=== PATIENT | female | born 1980 | race American Indian/Alaskan Native ===

== ENCOUNTER 2019-01-16 17:31 | Inpatient (IN) | payer OTHER ==
[2019-01-16] MEDS ORDERED: LACTATED RINGERS 1,000 ML ONE (18:38)
[2019-01-16 19:58] LABS: Bilirubin,Urine NEG (Negative); Blood,Urine NEG (Negative); Color,Urine Colorless (Yellow); Hyaline Casts,Urine 1 /LPF; Protein,Urine <15 mg/dL mg/dL (Negative); Urobilinogen,Urine < 2.0 mg/dL (<2.0)
[2019-01-16] MEDS ORDERED: LACTATED RINGERS 1,000 ML IV ONE (20:00)
[2019-01-16] MEDS ORDERED: VISTARIL PO ONE (20:45)
[2019-01-16] MEDS ORDERED: COLACE PO PRN (22:47)
[2019-01-16] MEDS ORDERED: ALUM-MAG HYDROX-SIMETH 200-200-20MG/5ML PO PRN (22:53)
[2019-01-16] MEDS ORDERED: TYLENOL PO STA (22:58)
[2019-01-16] MEDS ORDERED: BRETHINE SUB-Q ONE (22:59)
[2019-01-16] MEDS ORDERED: TYLENOL PO ONE (23:24)
--- NOTE | 2019-01-17 00:31 | History and Physical Report ---
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 denies: smoking, alcohol abuse, prescription drug abuse, IV drug use - Obstetrical History Expected Date of Delivery: 05/24/19 Actual Gestation: 21 Week(s) 6 Day(s) : 2 Para: 1 Hx # Term Pregnancies: 1 Number of Pregnancies: 0 Spontaneous Abortions: 0 Induced : 0 Number of Living Children: 1 Medications and Allergies Allergies Allergy/AdvReac Type Severity Reaction Status Date / Time No Known Allergies Allergy Unverified 01/16/19 19:25 Active Meds: Active Medications Al Hydrox/Mg Hydrox/Simethicone (Alum-Mag Hydrox-Simeth [id number]/5ml) 30 ml PO Q6H PRN PRN Reason: Indigestion Docusate Sodium (Colace) 100 mg PO Q12H PRN PRN Reason: Constipation Lactated Ringer's (Lactated Ringers) 1,000 mls @ 150 mls/hr IV DIRECT ROBERTO Multivitamins/Iron/Calcium ( Vitamin) 1 each PO QDAY ROBERTO Review of Systems All systems: negative (irregular contractions) Genitourinary: contractions (irregular) - Vital Signs Vital signs: Vital Signs Pulse BP 78 109/55 01/16/19 19:18 01/16/19 19:18 Temp Pulse Resp BP Pulse Ox 1830 F H 90 121/76 01/16/19 19:45 01/16/19 23:10 01/16/19 23:10 - Physical Exam Breasts: Positive: normal Cardiovascular: Regular rate, Normal S1, Normal S2 Lungs: Positive: Clear to auscultation Abdomen: Positive: normal appearance, soft, normal bowel sounds. Negative: distention, tenderness Vulva: both: normal Vagina: Positive: normal moisture. Negative: discharge Cervix: Negative: lesion, discharge Uterus: Positive: normal size, normal contour Anus/Rectum: Positive: normal perianal skin, heme negative. Negative: rectal mass, hemorrhoids Extremities: Positive: normal Deep Tendon Reflex Grade: Normal +2 - Obstetrical FHR: auscultation normal (via doppler) Results Result Diagrams: 01/17/19 21:01 Abnormal lab results 01/16/19 Range/Units 18:18 Ur Specific [place] 1.001 L (1.003-1.030) All other labs normal. Assessment and Plan 38 y.o. IUP 21w5d presents to triage with c/o contractions, pain 8/10. She reports that contractions began the night before, but she was able to sleep well through the night and when she awoke they were gone. She reports that throughout the day they "came and went" and she became concerned when they presented more painful. She admits to not drinking adequate amount of water throughout the day, and that she has been busy outside. She Denies any vaginal bleeding or LOF, +FM. Doppler heart tones appropriate for GA. SVE per transcriber- closed, thick. No vaginal bleeding noted. TOCO shows regular contractions per RN, palpating mild. After IV fluids, patient reports pain is 2/10, she "feels better". RN reports contractions on TOCO are now occasional/irritability, mild, but when she am bulated to bathroom and back to bed, patient reports more intense abdominal pain again. "8/10 like when I got here". Repeat SVE is 50/-3, RN notes brown discharge on exam glove. Consult with Dr. Delacruz to determine POC, patient offered vistaril and tylenol for comfort, continue IV fluids. Patient reports continued discomfort despite relief measures. Patient admitted for observation, continue IV fluids, may complete terb series. US for CL ordered. Patient states she receives regular care with Dr. Reggie Flores, hx of normal vaginal delivery at term, no hx labor or delivery, no complications with prior or current . States EDC was assigned by LMP, c/w US at 6 wks GA, request for records signed by patient and faxed.Will continue monitor.
[2019-01-17] MEDS: LACTATED RINGERS 1,000 ML IV SCH ×3 (00:46→09:26)
[2019-01-17] MEDS ORDERED: BRETHINE IVP ONE (00:59)
[2019-01-17] MEDS ORDERED: BRETHINE ONE (01:05)
--- NOTE | 2019-01-17 01:06 | Ultrasound Report ---
PROCEDURE: US OB LIMITED TECHNIQUE: Real-time limited sonographic examination was performed for evaluation of presentat ion, placenta, cervix for each fetus with image documentation (1 or more fetuses). HISTORY: labor COMPARISONS: None . FINDINGS: There is a single fetus in a vertex orientation. The placenta is along the posterior uterus. There is a normal amount of amniotic fluid present. The cervical length is 2.3 cm. heart rate 1 54 bpm. No further measurements are obtained on this study IMPRESSION: Single fetus in a vertex presentation. The cervical length is 2.3 cm. This document is electronically signed by Rayne Flores DO., January 17 2019 01:04:22 AM ET
--- NOTE | 2019-01-17 03:52 | Event Note ---
Date: 01/17/19 RN reports patient is resting in bed, feeling much better. Rates pain 2 with occasional contraction at this time. 2nd dose of terbutaline has been given. No activity on TOCO noted. Doppler FHTs appropriate. VSS. Will continue to monitor.
--- NOTE | 2019-01-17 09:15 | Progress Note ---
Assessment and Plan Patient was assessed this morning after reported being comfortable throughout the night. Patient reported feeling better, abdominal pain was occasional, minimal, mild. SVE no change from prior exam. No contractions or irritability noted on TOCO. Patient desired discharge and plans were made for patient to f/u tomorrow with assigned OB provider. Shortly after assessment when preparing to discharge patient, she called out with sudden, severe abdominal pain. Consult with Dr. Delacruz- order for US for abruption, labs ordered. NICU consulted to [facility] GA is less than age of viability. Will reassess plans with review of US and lab results. Subjective - Subjective Date of service: 01/17/19 Patient reports: movement normal, contractions (pt reports contractions have resumed, she reports strong abdominal pain), no loss of fluid, no vaginal b leeding Objective - Vital Signs Vital Signs: Vital Signs - 12hr 01/16/19 01/17/19 01/17/19 23:10 00:30 01:30 Temperature 98.2 F Pulse Rate 90 92 H 105 H Respiratory 18 20 Rate Blood Pressure 121/76 Blood Pressure 94/54 [Left] O2 Sat by Pulse 98 Oximetry 01/17/19 01/17/19 01/17/19 02:55 05:15 07:35 Temperature 98.8 F 98.0 F Pulse Rate 107 H 93 H Respiratory 18 18 Rate Blood Pressure Blood Pressure 90/54 102/59 [Left] O2 Sat by Pulse 98 100 Oximetry - Exam Breasts: normal Cardiovascular: Regular rate, Normal S1, Normal S2 Lungs: Clear to auscultation Abdomen: Present: normal appearance, soft, normal bowel sounds. Absent: distention, tenderness Vulva: both: normal Uterus: Present: normal (soft, nontender) FHR: auscultation normal (dopplers apropriate for GA) Uterine Contraction Monitor Mode: External Uterine Contraction Frequency (min): irritability Uterine Contraction Pattern: Irregular Uterine Contraction Intensity: Mild (by palpation) Extremities: normal Deep Tendon Reflex Grade: Normal +2 - Labs Labs: Abnormal Labs 01/16/19 18:18 Ur Specific [place] 1.001 L Laboratory Results - last 24 hr 01/16/19 18:18 Urine Color Colorless Urine Turbidity Clear Urine pH 7.0 Ur Specific [place] 1.001 L Urine Protein <15 mg/dl Urine Glucose (UA) Neg Urine Ketones Neg Urine Blood Neg Urine Nitrite Neg Urine Bilirubin Neg Urine Urobilinogen < 2.0 Ur Leukocyte Esterase Neg Urine WBC (Auto) 0.0 Urine RBC (Auto) 0.0 U Epithel Cells (Auto) < 1.0 Hyaline Casts 1
[2019-01-17] MEDS ORDERED: PITOCin/NS 20 UNIT/1000ML DRIP 20,000 MILLIUNITS/1,000 ML BAG IV ONE (09:18)
[2019-01-17 09:22] LABS: Basophils % (Auto) 0.2 % (0.0-1.8); Eosinophils % (Auto) 0.5 % (0.0-4.3); Hematocrit 32.5 % (30.3-42.9); Hemoglobin 10.5 gm/dl (10.1-14.3); Lymphocytes # (Auto) 0.7 K/mm3 (1.2-5.4); Lymphocytes % (Auto) 8.7 % (13.4-35.0); Mean Corpuscular HGB Conc 32 % (30-34); Mean Corpuscular Volume 80 fl (79-97); Monocytes # (Auto) 0.7 K/mm3 (0.0-0.8); Monocytes % (Auto) 8.7 % (0.0-7.3); Platelet Count 371 K/mm3 (140-440); Red Blood Count 4.09 M/mm3 (3.65-5.03); Red Cell Distribution Width 13.7 % (13.2-15.2)
[2019-01-17] MEDS ORDERED: SUBLIMAZE ONE (09:23)
[2019-01-17] MEDS ORDERED: PRENATAL VITAMIN PO SCH (10:00)
[2019-01-17] MEDS ORDERED: STADOL IV PRN (10:01)
[2019-01-17] MEDS ORDERED: STADOL ONE (10:02)
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
--- NOTE | 2019-01-17 10:16 | Ultrasound Report ---
PROCEDURE: US OB FOLLOW UP TECHNIQUE: Transabdominal OB ultrasound. HISTORY: abdominal pain COMPARISONS: OB ultrasound January 16, 2019. FINDINGS: Single intrauterine dates 21.4 weeks. ZHAO equals May 26, 2019. This is 2 days younger compared to the LMP and is within normal limits. EFW equals 443 +/- 66 g. Percentile equals 35%. BPD: 21.1 weeks. HC: 21.3 weeks. AC: 22.0 weeks. FL: 21.3 weeks. CI: 80.3 (74-83) HC/AC: 1.13 (1.06-1.25) Presentation: Cephalic. Placenta: Posterior and grade 0. No previa. heart rate: 153 BPM. Cervix: Completely open or significant funneling. IMPRESSION: * Single live intrauterine . * Cervix is completely open which was not present on the prior. Differential diagnosis includes sign ificant funneling. This document is electronically signed by Mike Mcnair MD., January 17 2019 10:14:26 AM ET
--- NOTE | 2019-01-17 10:35 | Procedure Note ---
OB Delivery Note - Delivery Date of Delivery: 01/17/19 Audio Visual Coordinator: RYANNE ROSAS (Dr. Delacruz) Estimated blood loss: 200cc - Vaginal Delivery presentation: vertex Delivery induction: none Delivery monitor: external uterine Route of delivery: Delivery placenta: spontaneous Episiotomy: none Delivery laceration: none Anesthesia: intravenous Delivery comments: US shows complete dilation. Patient reports urge to push, allowed to push spontaneously with Dr. Delacruz and myself at bedside. Patient declines SVE. Reports increased pain. Stadol 2mg IV one time dose given at this time. Patient reports some relief. Patient's family remains at bedside, patient resting with eyes closed. Patient desires no SVE at this time. MD and CNM to assess another patient. Instructed patient and family to call out with any s/s ROM or changes in patient's assessment, or desire to begin pushing again. Patient's family called out to report "baby is out" shortly after CNM exiting room. Dr. Delacruz presents to room. Cord clamped and cut. NICU team to bedside to assess baby at warmer, Middleware Consultant determined no resus measures to be taken d/t size and GA. Patient agrees for comfort measures, baby wrapped in blanket with hat on, placed on mother's chest. Placenta delivered complete and intact. Sent to pathology via RN. Pitocin to IV. Fundus is firm. Scant vaginal bleeding noted. No laceration to repair. Patient reports she is comfortable, stable condition, VSSAF, no requests at this time. - Infant A Gender: Female (Nonviable female. NICU team at bedside to assess, no r esus measures able to be taken per Middleware Consultant d/t GA/size. Patient understands and agrees, wrapped in blantet with hat on, placed on mother's chest.)
[2019-01-17] MEDS ORDERED: SUBLIMAZE IV ONE (11:45)
[2019-01-17] MEDS ORDERED: PITOCin/NS 20 UNIT/1000ML DRIP 20 UNITS/1,000 ML BAG IV SCH ×2 (12:00→14:00)
[2019-01-17] MEDS ORDERED: BENADRYL PO PRN ×2 (12:44→15:14)
[2019-01-17] MEDS ORDERED: TYLENOL PO PRN ×2 (12:44→15:14)
[2019-01-17] MEDS ORDERED: PHENERGAN PO PRN ×2 (12:44→15:14)
[2019-01-17] MEDS ORDERED: LANSINOH TP PRN ×2 (12:44→15:14)
[2019-01-17] MEDS ORDERED: TUCKS PAD TP PRN ×2 (12:44→15:14)
[2019-01-17] MEDS ORDERED: MILK OF MAGNESIA PO PRN ×2 (12:44→15:14)
[2019-01-17] MEDS ORDERED: DULCOLAX PR PRN ×2 (12:44→15:14)
[2019-01-17] MEDS ORDERED: ZOFRAN IV PRN ×2 (12:44→15:14)
[2019-01-17] MEDS ORDERED: SODIUM CHLORIDE FLUSH SYRINGE 10 ML IV SCH ×2 (13:00→15:14)
--- NOTE | 2019-01-17 13:43 | Event Note ---
Date: 01/17/19 Late entry On arrival to room, fetus in bed, no obvious movement, NICU called. Because of nonviability, fetus placed on mother's chest per her request after the cord was clamped and cut. NICU immediately arrived to assess fetus. Placenta spontaneously delivered by Eduarda Mendez CNM.
[2019-01-17] MEDS ORDERED: IBUPROFEN PO SCH (14:00)
[2019-01-17] MEDS: IBUPROFEN PO SCH (20:26)
[2019-01-17 21:28] LABS: Hematocrit 32.1 % (30.3-42.9); Hemoglobin 10.5 gm/dl (10.1-14.3)
[2019-01-18] MEDS: IBUPROFEN PO SCH ×3 (01:10→11:20)
--- NOTE | 2019-01-18 06:28 | Discharge Summary ---
Providers - Providers Date of Admission: 01/17/19 15:14 Date of discharge: 01/18/19 (pt desires d/c today) Attending physician: SD [place] Primary care physician: WRAPPER STEMMER OPERATOR Hospitalization Reason for admission: labor, rupture of membranes Delivery: Episiotomy: none Laceration: none Other procedures: none complications: none baby: female (demise 21 weeks gestation) Hospital course: 21week female fetus No spontaneous effort noted by NICU team Decision made with parental understanding that baby was too small for resuscitation. Pt found in shower crying Very appropriate emotional discord. Pt's main concern was how to tell her 5yo. Spoke with pt that the truth and answer his questions at his level of understanding. VSS FF below umb Lochia scant perineum intact H&H No s/sx of anemia Stable s/p vag delivery demised female @ 21 weeks P: d/c today with instructions Will RTO 2 weeks or sooner if needed. Pt aware of available counseling. Condition at discharge: Good Disposition: DC-01 TO HOME OR SELFCARE - Discharge Diagnoses (1) premature rupture of membranes (PPROM) delivered, current hospitalization Status: Acute Comment: RTO 2 weeks Plan - Provider Discharge Summary Activity: routine, no sex for 6 weeks, no heavy lifting 4 weeks, no strenuous exercise Diet: routine Instructions: routine Additional instructions: [] Smoking cessation referral if applicable(refer to patient education folder for contact #) [] Refer to [facility]'s [facility] Booklet Call your doctor immediately for: * Fever > 100.5 * Heavy vaginal bleeding ( >1 pad per hour) * Severe persistent headache * Shortness of breath * Reddened, hot, painful area to leg or breast * Drainage or odor from incision. * Keep incision clean and dry at all times and follow doctor's instructions regarding bathing/showering - Follow up plan Follow up: PRIMARY CARE, [Primary Care Provider] - 7 Days TARSHA RUSSELL CNM [Advanced Practice Nurse] - 14 Days (Please call [phone] to schedule your appointment in 2 weeks. If you have any questions or concerns please call. Motrin/ibuprofen for pain/cramping. )
[2019-01-18 08:41] VITALS: BP 125/77
== END 2019-01-18 12:30 | disposition home or self-care (01) | DRG 805 ==
LOC: TRG 17:31 → LD 01-17 00:09 → OB 01-17 14:34 → OBSVTOIN 01-17 15:14
PROVIDERS: ADMIT Obstetrics & Gynecology; ATTEND Obstetrics & Gynecology
PROC: 10E0XZZ Delivery of Products of Conception, External Approach (ICD-10-PCS; principal; 2019-01-17)
DX: O42.912 Preterm premature rupture of membranes, unspecified as to length of time between rupture and onset of labor, second trimester (principal); O60.12X0 Preterm labor second trimester with preterm delivery second trimester, not applicable or unspecified; Z37.1 Single stillbirth; Z3A.21 21 weeks gestation of pregnancy
CPT/HCPCS: 36415; 76815; 76816; 81001; 85014; 85018; 85025; 86850; 86900; 86901; 88305; G0378; J0595; J2590; J3010; J3105; J7120; Q0177